=== PATIENT | female | born 1970 | race Caucasian/White ===

== ENCOUNTER 2017-12-28 12:39 | Outpatient (REF) | payer BC, SELFPAY | END 2017-12-28 12:59 | LOC: NCHCN 12:39 | PROVIDERS: PCP Nurse Practitioner; Visit Provider Nurse Practitioner Family | DX: N39.0 Urinary tract infection, site not specified (principal) | CPT/HCPCS: 87077; 87086; 87186 ==

== ENCOUNTER 2018-05-23 11:06 | Outpatient (REF) | payer BC, SELFPAY | END 2018-05-23 11:26 | LOC: LBN 11:06 | PROVIDERS: PCP Nurse Practitioner; Visit Provider Nurse Practitioner | DX: N39.0 Urinary tract infection, site not specified (principal) | CPT/HCPCS: 87086 ==

== ENCOUNTER 2022-06-27 03:02 | Outpatient (CLI) | payer OTHER, SELFPAY ==
[2022-06-27 11:05] LABS: HCT 47.6 % (36.0-46.0); HGB 15.9 g/dL (11.2-15.7); MCH 31.5 pg (27.0-33.0); MCHC 33.4 % (32.0-36.0); MCV 94 fL (80-95); MPV 9.5 fL (8.0-11.0); Platelet Count 411 10^3/uL (130-400); RBC 5.04 10^6/uL (3.93-5.22); RDW 13.2 % (11.7-14.6); RDW-SD 45.9 fL; WBC 10.83 10^3/uL (4.4-10.8)
[2022-06-27 11:09] LABS: ESR 39 mm/hr (0-30)
[2022-06-27 13:07] LABS: ALT 54 U/L (14-59); AST 25 U/L (15-37); Albumin 3.9 g/dL (3.4-5.0); Alkaline Phosphatase 227 U/L (46-116); Anion Gap 7.3 mmol/L (3-11); BUN 11 mg/dL (7-18); Bilirubin, Total 0.5 mg/dL (0.2-1.0); CO2 27.7 mmol/L (21.0-32.0); CREATININE 0.9 mg/dL (0.55-1.02); Calcium 9.2 mg/dL (8.5-10.1); Chloride 103 mmol/L (98-107); Glucose 119 mg/dL (74-106); Potassium 4.4 mmol/L (3.5-5.1); Sodium 138 mmol/L (136-145); TSH 1.97 uIU/mL (0.36-3.74); Total Protein 8.8 g/dL (6.4-8.2); Uric Acid 3.7 mg/dL (2.6-6.0)
[2022-06-27 13:22] LABS: Bilirubin Negative (Negative); Blood Trace-intact (Negative); Clarity Clear (Clear); Glucose Negative (Negative); Ketones Negative (Negative); Leukocyte Esterase Small (Negative); Nitrite Negative (Negative); Urobilinogen 0.2 mg/dL (Up to 0.2); pH 7.5 (5-8)
[2022-06-27 13:56] LABS: Bacteria Rare HPF (Negative); C & S Indicated? Yes; Casts Negative LPF (Negative); Crystals Negative HPF (Negative); Epithelial Cells Negative HPF (Negative); Mucus Negative (Negative); Other Cells Negative (Negative)
[2022-06-28 11:10] LABS: Lyme Ab w Rflx to Lyme Confirm Negative (Negative)
== END 2022-06-27 03:03 | disposition home or self-care (01) ==
PROVIDERS: PCP Nurse Practitioner; Visit Provider General Practice
DX: M13.88 Other specified arthritis, other site (principal)
CPT/HCPCS: 36415; 80053; 85027; 85652; 81003; 81015; 84443; 84550; 86618; 87086

== ENCOUNTER 2022-07-21 01:27 | Outpatient (CLI) | payer OTHER, SELFPAY ==
[2022-07-21 11:57] LABS: Abs Immature Grans 0.03 10^3/uL (0.0-0.06); Absolute Basophil Count 0.16 10^3/uL (0.0-0.2); Absolute Eosinophil Count 0.52 10^3/uL (0.0-0.7); Absolute Lymphocyte Count 2.66 10^3/uL (1.2-3.4); Basophils % 1.4; Eosinophils % 4.7; HCT 46.9 % (36.0-46.0); HGB 15.6 g/dL (11.2-15.7); Immature Grans % 0.3; Lymphocytes % 23.9; MCH 31.4 pg (27.0-33.0); MCHC 33.3 % (32.0-36.0); MCV 94 fL (80-95); Neutrophils % 60.7; Platelet Count 450 10^3/uL (130-400); RBC 4.97 10^6/uL (3.93-5.22); RDW 13.6 % (11.7-14.6); RDW-SD 47.5 fL; WBC 11.14 10^3/uL (4.4-10.8)
[2022-07-21 11:59] LABS: Absolute Neutrophil Count 6.76 10^3/uL (1.2-6.7)
[2022-07-21 21:48] LABS: CRP, High Sensitivity 3.75 mg/L (See Note)
[2022-07-24 16:55] LABS: Leptospira IgM, S Negative (Negative)
[2022-07-25 13:32] LABS: Tetanus IgG Ab Positive
== END 2022-07-21 01:28 | disposition home or self-care (01) ==
LOC: LBO 01:27
PROVIDERS: PCP Nurse Practitioner; Referring Provider Family Medicine; Visit Provider Family Medicine
DX: R50.9 Fever, unspecified (principal); R29.898 Other symptoms and signs involving the musculoskeletal system; Z77.120 Contact with and (suspected) exposure to mold (toxic)
CPT/HCPCS: 36415; 86141; 86790; 85025; 86606; 86720; 86774

== ENCOUNTER 2023-03-12 04:13 | Outpatient (CLI) | payer OTHER, SELFPAY ==
[2023-03-12 14:11] LABS: Abs Immature Grans 0.03 10^3/uL (0.0-0.06); Absolute Basophil Count 0.12 10^3/uL (0.0-0.2); Absolute Eosinophil Count 0.36 10^3/uL (0.0-0.7); Absolute Lymphocyte Count 2.29 10^3/uL (1.2-3.4); Absolute Monocyte Count 1.04 10^3/uL (0.1-0.8); Eosinophils % 2.9; HCT 40.7 % (36.0-46.0); HGB 13.5 g/dL (11.2-15.7); Immature Grans % 0.2; Lymphocytes % 18.5; MCH 29.7 pg (27.0-33.0); MCHC 33.2 % (32.0-36.0); MCV 90 fL (80-95); MPV 8.6 fL (8.0-11.0); Monocytes % 8.4; Platelet Count 572 10^3/uL (130-400); RBC 4.54 10^6/uL (3.93-5.22); RDW-SD 49.6 fL; WBC 12.37 10^3/uL (4.4-10.8)
[2023-03-12 14:12] LABS: Absolute Neutrophil Count 8.54 10^3/uL (1.2-6.7)
[2023-03-12 15:11] LABS: ALT 20 U/L (14-59); AST 18 U/L (15-37); Albumin 2.4 g/dL (3.4-5.0); Alkaline Phosphatase 183 U/L (46-116); Anion Gap 8.3 mmol/L (3-11); BUN 11 mg/dL (7-18); Bilirubin, Total 0.3 mg/dL (0.2-1.0); CO2 26.7 mmol/L (21.0-32.0); Calcium 8.7 mg/dL (8.5-10.1); Chloride 101 mmol/L (98-107); Estimated GFR 68.21 (mL/min/1.73m2); Ferritin 34 ng/mL (8-252); Glucose 116 mg/dL (74-106); Potassium 4.3 mmol/L (3.5-5.1); Sodium 136 mmol/L (136-145); Total Protein 8.1 g/dL (6.4-8.2)
[2023-03-13 11:08] LABS: Transferrin 188 mg/dL (201-352)
[2023-03-14 14:11] LABS: G6PD Enzyme Activity 10.1 U/g Hb (8.0 - 11.9)
== END 2023-03-12 04:14 | disposition home or self-care (01) ==
PROVIDERS: PCP Nurse Practitioner
DX: R76.8 Other specified abnormal immunological findings in serum (principal); E61.1 Iron deficiency
CPT/HCPCS: 36415; 80053; 82955; 82728; 84466; 85025

== ENCOUNTER → 2023-05-02 01:25 | Outpatient (CLI) | payer OTHER, SELFPAY ==
--- NOTE | 2023-05-02 14:32 | DI.RAD_ITS ---
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 TECHNIQUE: 2D digital imaging was performed. Three views. COMPARISON: CR XR ACROMIO CLAVICULAR JOINTS from 05/02/2023 FINDINGS: BONES: Old fracture deformity of the proximal humeral shaft. Old left rib fractures. No acute fract ure is present. No bony destructive lesion is seen. JOINTS: No dislocation present. Spurring at the AC joint. The AC joint is not widened. The glenohu meral joint is maintained. Mild periarticular spurring. SOFT TISSUE: Normal. IMPRESSION: Unremarkable old humeral fracture and old rib fractures. Mild degenerative changes. DATA REPOSITORY: RADIATION DOSE DELIVERED:
--- NOTE | 2023-05-02 14:32 | DI.RAD_ITS ---
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 COMPARISON: CR XR SHOULDER LT COMPLETE 2+V from 05/02/2023 CR XR SHOULDER RT COMPLETE 2+V from 05/02/2023 TECHNIQUE: 2D digital imaging was performed. Three views. FINDINGS: The AC joints are not widened. There is mild spurring of the AC joints, left greater than right. Gl enohumeral joints are maintained. Sternoclavicular joints are roughly symmetric. IMPRESSION: Degenerative changes. DATA REPOSITORY: RADIATION DOSE DELIVERED:
--- NOTE | 2023-05-02 14:32 | DI.RAD_ITS ---
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 TECHNIQUE: 2D digital imaging was performed. Five views. COMPARISON: CR XR SHOULDER LT COMPLETE 2+V from 05/02/2023 CR XR ACROMIO CLAVICULAR JOINTS from 05/02/2023 FINDINGS: BONES: No acute fracture is present. No bony destructive lesion is seen. Old right upper rib fractur es. JOINTS: No dislocation present. The glenohumeral joint space is maintained. No significant periarti cular spurring. Mild spurring at the AC joint. AC joint is not widened. SOFT TISSUE: Normal. IMPRESSION: Mild degenerative changes. Old right rib fractures. DATA REPOSITORY: RADIATION DOSE DELIVERED:
--- NOTE | 2023-05-02 14:32 | DI.RAD_ITS ---
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 TECHNIQUE: 2D digital imaging was performed. Three views. COMPARISON: No exams were available for comparison FINDINGS: BONES: No fracture or destructive lesion. Endplate osteophytes from C3 through C6 7. DISKS: Intervertebral disc spaces are maintained. [id number] narrowing of the C3-4 through C5- 6 disc spaces. ALIGNMENT: Reversal of the normal cervical lordosis at C3-4 secondary to facet degenerative changes. The odontoid and atlantoaxial articulations are normal. SOFT TISSUE: Normal. The lung apices are clear. IMPRESSION: Degenerative changes from C3-4 through C6-7. DATA REPOSITORY: RADIATION DOSE DELIVERED:
== END ==
PROVIDERS: PCP Nurse Practitioner; Visit Provider Naturopath
DX: M25.311 Other instability, right shoulder (principal); M25.312 Other instability, left shoulder
CPT/HCPCS: 72040; 73030; 73050